=== PATIENT | male | born 1980 | race Caucasian/White ===

== ENCOUNTER 2022-06-28 00:45 | Emergency (ER) | payer OTHER, SELFPAY ==
[2022-06-28 02:17] LABS: Bilirubin Negative (Negative); Blood, Urine Negative (Negative); Clarity Clear (Clear); Glucose, Urine (Dipstick) Negative (Negative); Ketone, Urine Negative (Negative); Leukocyte Negative (Negative); Nitrite Negative (Negative); Protein, Urine (Dipstick) 30 mg/dL (Neg-Trace); Urobilinogen 0.2 mg/dL (Less than 2)
[2022-06-28 02:28] LABS: Specific Gravity, Urine 1.029 (1.002-1.036)
[2022-06-28 02:29] LABS: Mucous/LPF 1+ LPF (<2+); RBC/HPF 0-3 HPF (0-3)
[2022-06-28] MEDS ORDERED: Bacitracin 1 PK ONE (02:42)
[2022-06-28] MEDS ORDERED: HYDROcodone/Acetaminophen 10/325 mg Tablet ONE (02:59)
[2022-06-28] MEDS ORDERED: Ibuprofen 800 MG TAB ONE (02:59)
== END 2022-06-28 03:06 | disposition home or self-care (01) ==
LOC: BURERS 00:45
DX: S06.9X1A Unspecified intracranial injury with loss of consciousness of 30 minutes or less, initial encounter (principal); M51.34 Other intervertebral disc degeneration, thoracic region; S22.42XA Multiple fractures of ribs, left side, initial encounter for closed fracture; W14.XXXA Fall from tree, initial encounter
CPT/HCPCS: 70450; 71045; 71250; 72125; 74177; 81003; 81015; 94760

== ENCOUNTER 2022-10-09 09:00 | Emergency (ER) | payer SELFPAY | END 2022-10-09 09:37 | disposition home or self-care (01) | LOC: BURERS 09:00 | DX: S90.862A Insect bite (nonvenomous), left foot, initial encounter (principal); W57.XXXA Bitten or stung by nonvenomous insect and other nonvenomous arthropods, initial encounter | CPT/HCPCS: 99281 ==